=== PATIENT | male | born 1990 | race Caucasian/White ===

== ENCOUNTER 2019-02-02 16:32 | Emergency (ER) | payer OTHER ==
[2019-02-02] MEDS ORDERED: KETOROLAC TROMETHAMINE INJ/PF 30 MG/1 ML SDV IV ONE (17:04)
[2019-02-02] MEDS ORDERED: AMPICILLIN SOD/SULBACTAM 3 GM VIAL IV ONE (17:04)
--- NOTE | 2019-02-02 17:07 | ER Document Report ---
Addendum entered and electronically signed by SERENA ALVARADO NP 02/02/19 17:10: ED Medical Screen (RME) - General Chief Complaint: Dog Bite Stated Complaint: DOG BITE/RIGHT HAND Time Seen by Provider: 02/02/19 16:54 Primary Care Provider: KEE MATA MD [Primary Care Provider] - Follow up as needed Mode of Arrival: Ambulatory TRAVEL OUTSIDE OF THE [place] IN LAST 30 DAYS: No - HPI Notes: 02/02/19 17:10 Right hand is involved, not the left hand. - Related Data Allergies/Adverse Reactions: No Known Allergies Allergy (Verified 02/02/19 16:33) Original Note: ED Medical Screen (RME) - General Chief Complaint: Dog Bite Stated Complaint: DOG BITE/RIGHT HAND Time Seen by Provider: 02/02/19 16:54 Primary Care Provider: KEE MATA MD [Primary Care Provider] - Follow up as needed Mode of Arrival: Ambulatory Information source: Patient TRAVEL OUTSIDE OF THE [place] IN LAST 30 DAYS: No - HPI Patient complains to provider of: DOG BITE Notes: 02/02/19 17:05 Patient here with complaint of dog bite to the left hand. This is his dog. They have had it for about 8 or 9 months. They believe that the dog's immunizations are up-to-date. States that the dog bit him on his left hand last night. There is known area of redness, swelling and pain to the dorsum of the hand. Up-to-date. No numbness, tingling, weakness. No drainage. Exam No distress, nontoxic-appearing. Lungs clear and equal throughout. Heart exam is normal. Multiple puncture wounds to the left hand with some redness, swelling and tenderness to the dorsum of the right hand over the index, middle finger MCP. No drainage. Full range of motion. Mild swelling noted to the entire hand. Plan CBC, CMP, x-ray, saline lock, Unasyn. X-ray of the left hand. An initial examination was made on the patient as part of the triage process, and it was determined a more comprehensive evaluation was necessary. Initial labs were ordered and patient was transferred to another provider in the ED who assumed care and finished evaluation and plan. - Related Data Allergies/Adverse Reactions: No Known Allergies Allergy (Verified 02/02/19 16:33) Past Medical History - Social History Frequency of alcohol use: None Drug Abuse: None Renal/ Medical History: Denies: Hx Peritoneal Dialysis GI Medical History: Reports: Hx Gastroesophageal Reflux Disease Past Surgical History: Reports: Hx Tonsillectomy Physical Exam - Vital signs Vitals: Temp Pulse Resp BP Pulse Ox 98.3 F 91 18 123/76 99 02/02/19 16:39 02/02/19 16:39 02/02/19 16:39 02/02/19 16:39 02/02/19 16:39 Course - Vital Signs Vital signs: Temp Pulse Resp BP Pulse Ox 98.3 F 91 18 123/76 99 02/02/19 16:39 02/02/19 16:39 02/02/19 16:39 02/02/19 16:39 02/02/19 16:39 Doctor's Discharge - Discharge Referrals: KEE MATA MD [Primary Care Provider] - Follow up as needed
[2019-02-02 17:30] LABS: ABSOLUTE BASOPHILS # (AUTO) 0.1 10^3/uL (0.0-0.2); ABSOLUTE EOSINOPHILS # (AUTO) 0.1 10^3/uL (0.0-0.6); ABSOLUTE LYMPHOCYTES (AUTO) 1.5 10^3/uL (0.5-4.7); ABSOLUTE MONOCYTES (AUTO) 0.8 10^3/uL (0.1-1.4); ABSOLUTE NEUT (AUTO) 7.3 10^3/uL (1.7-8.2); BASOPHILS % (AUTO) 0.6 % (0-2); EOSINOPHILS % (AUTO) 0.5 % (0-6); HEMATOCRIT 43.2 % (37.9-51.0); LYMPHOCYTES % (AUTO) 15.3 % (13-45); MEAN CORPUSCULAR HEMOGLOBIN 29.8 pg (27.0-33.4); MEAN CORPUSCULAR HGB CONC 34.8 g/dL (32.0-36.0); MEAN CORPUSCULAR VOLUME 86 fl (80-97); MONOCYTES % (AUTO) 8.2 % (3-13); PLATELET COUNT 234 10^3/uL (150-450); RED BLOOD COUNT 5.05 10^6/uL (4.35-5.55); RED CELL DISTRIBUTION WIDTH 13.3 % (11.5-14.0); SEGMENTED NEUTROPHILS % (AUTO) 75.4 % (42-78); TOTAL CELLS COUNTED % (AUTO) 100 %; WHITE BLOOD COUNT 9.7 10^3/uL (4.0-10.5)
--- NOTE | 2019-02-02 17:35 | RADIOLOGY REPORT (SQ) ---
EXAM DESCRIPTION: HAND RIGHT 3 VIEWS COMPLETED DATE/TIME: 02/02/2019 5:24 pm REASON FOR STUDY: DOG BITE COMPARISON: None. EXAM PARAMETERS: NUMBER OF VIEWS: Three views. TECHNIQUE: AP, lateral and oblique radiographic images acquired of the right hand. LIMITATIONS: None. FINDINGS: MINERALIZATION: Normal. BONES: No acute fracture or dislocation. No worrisome bone lesions. JOINTS: No effusions. SOFT TISSUES: No soft tissue swelling. No foreign body. OTHER: No other significant finding. IMPRESSION: NEGATIVE STUDY OF THE RIGHT HAND. NO RADIOGRAPHIC EVIDENCE OF ACUTE INJURY. TECHNICAL DOCUMENTATION: JOB ID: [id number] [employer]- All Rights Reserved Reading location - IP/workstation name: [email or web address]
[2019-02-02 17:51] LABS: ALANINE AMINOTRANSFERASE 64 U/L (21-72); ALBUMIN 4.4 g/dL (3.5-5.0); ALKALINE PHOSPHATASE 62 U/L (38-126); ANION GAP 9 (5-19); ASPARTATE AMINO TRANSFERASE 33 U/L (17-59); BILIRUBIN,DIRECT 0.3 mg/dL (0.0-0.4); BILIRUBIN,TOTAL 0.8 mg/dL (0.2-1.3); BLOOD UREA NITROGEN 15 mg/dL (7-20); CALCIUM 10.1 mg/dL (8.4-10.2); CARBON DIOXIDE 30 mmol/L (22-30); CHLORIDE 101 mmol/L (98-107); GLUCOSE 105 mg/dL (75-110); POTASSIUM 4.2 mmol/L (3.6-5.0); SODIUM 139.7 mmol/L (137-145); TOTAL PROTEIN 7.3 g/dL (6.3-8.2)
[2019-02-02 19:14] VITALS: BP 104/68
--- NOTE | 2019-02-02 19:46 | ER Document Report ---
ED Animal Bite - General Chief Complaint: Dog Bite Stated Complaint: DOG BITE/RIGHT HAND Time Seen by Provider: 02/02/19 16:54 Primary Care Provider: KEE MATA MD [[facility]ER[facility]] - Follow up as needed Mode of Arrival: Ambulatory Notes: Patient is a 28-year-old male comes emergency room complaining of right hand pain. Patient states that yesterday he was playing with his dog with a bag of food and dog reached up and grabbed his right hand and bit down on it. He has multiple puncture wounds on the dorsum of the right hand as well as the fingers of the right hand. Patient try to clean him up and bandaged himself however in the past 24 hours the hand started to swell somewhat and there is areas to become red and swollen. Patient was afraid he might be getting infected. He states he is here for evaluation of this. TRAVEL OUTSIDE OF THE [place] IN LAST 30 DAYS: No - HPI Location of injury: RUE Onset: Yesterday Quality of pain: Achy Pain Level: 3 Severity: Moderate Context of attack: "Provoked" attack Type of animal: Dog Appearance of animal: Appeared well Animal's immunizations: UTD Animal captured or known: Yes Animal control notified: Yes - Related Data Allergies/Adverse Reactions: No Known Allergies Allergy (Verified 02/02/19 16:33) Past Medical History - General Information source: Patient - Social History Smoking Status: Current Every Day Smoker Cigarette use (# per day): Yes - Pack a day Chew tobacco use (# tins/day): No Smoking Education Provided: No Frequency of alcohol use: None Drug Abuse: None Lives with: Family Family History: Reviewed & Not Pertinent Patient has suicidal ideation: No Patient has homicidal ideation: No Renal/ Medical History: Denies: Hx Peritoneal Dialysis GI Medical History: Reports: Hx Gastroesophageal Reflux Disease Past Surgical History: Reports: Hx Tonsillectomy Review of Systems - Review of Systems Constitutional: No symptoms reported EENT: No symptoms reported Cardiovascular: No symptoms reported Respiratory: No symptoms reported Gastrointestinal: No symptoms reported Genitourinary: No symptoms reported Male Genitourinary: No symptoms reported Musculoskeletal: See HPI Skin: See HPI, Other - Puncture wounds right hand Hematologic/Lymphatic: No symptoms reported Neurological/Psychological: No symptoms reported -: Yes All other systems reviewed and negative Physical Exam - Vital signs Vitals: Temp Pulse Resp BP Pulse Ox 98.3 F 91 18 123/76 99 02/02/19 16:39 02/02/19 16:39 02/02/19 16:39 02/02/19 16:39 02/02/19 16:39 Interpretation: Normal - Notes Notes: PHYSICAL EXAMINATION: GENERAL: Well-appearing, well-nourished and in no acute distress. HEAD: Atraumatic, normocephalic. LUNGS: Breath sounds clear to auscultation bilaterally and equal. No wheezes rales or rhonchi. HEART: Regular rate and rhythm without murmurs Musculoskeletal: Examination of patient's area of concern is his right hand. Examination of the hand shows multiple puncture wounds on the right index finger right middle finger and the dorsum of the right thumb. There is extension of cellulitis from the base of the thumb to the dorsum of the hand down to about wrist level. Puncture wounds appear to be dried and healed at this time. There is one puncture wound on the middle right finger palmar side lateral that is close to the PIP but does not appear to be into the joint space. There is some extension of cellulitis and running to the knuckle/distal metacarpal. Patient has full flexion extension of all fingers there is good cap refill in the nailbeds of all fingernails. Patient has good brush washer strength. There is no sign of any tenosynovitis at this time. NEUROLOGICAL: Normal speech, normal gait. Normal sensory, motor exams PSYCH: Normal mood, normal affect. SKIN: Warm, Dry/see muscular skeletal above for full examination of the hand and skin area. Course - Re-evaluation Re-evalutation: 02/03/19 13:43 Patient is been instructed to take all of his antibiotics. He can open the dressing open to air starting on the . He is to soak the hand in Hibiclens 3 times a day. He has been instructed that he needs to monitor those puncture wounds that are close to the joint spaces which we discussed and no that and in any time in the next few months if it were to reproduce pain pain or discomfort he is to return to ER for recheck. - Vital Signs Vital signs: Temp Pulse Resp BP Pulse Ox 98.2 F 63 18 104/68 100 02/02/19 19:10 02/02/19 19:10 02/02/19 19:10 02/02/19 19:10 02/02/19 19:10 - Laboratory Result Diagrams: 02/02/19 17:14 02/02/19 17:14 Discharge - Discharge Clinical Impression: Dog bite of right hand including fingers with infection Qualifiers: Encounter type: initial encounter Qualified Code(s): S61.451A - Open bite of right hand, initial encounter Condition: Stable Disposition: HOME, SELF-CARE Instructions: Animal Bites ([facility]), Wound Infection ([facility]) Additional Instructions: Home and rest. Medication as prescribed. As we discussed even a month or 2 down the line if any of the fingers of the hands start to have severe pain and discomfort you will need to be re-seen in the emergency room. As stated this is because a couple of the bites are around a joint space and worry about the joint space infection occurring over time. This is worse case scenario and she has are nothing like that whether happened but just to be aware of it. Please take all of the antibiotics as prescribed. If you have increasing swelling or spreading of redness or streaking up or down your arm return to ER for a recheck at once. Should you have an spike a fever or any concerns at all return to ER for recheck. We have given you some antibacterial soap soak your hand and this solution 2-3 times a day for the next couple of days. Prescriptions: Amox Tr/Potassium Clavulanate [Augmentin 875-125 Tablet] 1 tab PO BID 14 Days #28 tablet Forms: Special Work Note, Smoking Cessation Education Referrals: KEE MATA MD [EMERITUS] - Follow up as needed
== END 2019-02-02 20:01 | disposition home or self-care (01) ==
LOC: ER 16:32
DX: S61.451A Open bite of right hand, initial encounter (principal); W50.3XXA Accidental bite by another person, initial encounter; Y92.009 Unspecified place in unspecified non-institutional (private) residence as the place of occurrence of the external cause; F17.210 Nicotine dependence, cigarettes, uncomplicated
CPT/HCPCS: 99283; 36415; 85025; 80053; 73130; J0295; J1885

== ENCOUNTER 2020-07-19 15:31 | Emergency (ER) | payer OTHER ==
[2020-07-19 17:02] VITALS: BP 142/76
--- NOTE | 2020-07-19 17:36 | ER Document Report ---
ED Medical Screen (RME) - General Chief Complaint: Abdominal Pain Stated Complaint: LEFT FOOT DISCOLORED Time Seen by Provider: 07/19/20 17:21 Primary Care Provider: EAN ANDERS MD [Primary Care Provider] - Follow up as needed Mode of Arrival: Ambulatory Information source: Patient Notes: 30-year-old male presents to ED for abdominal pain times a month to nodules that at times are tender but other times are nontender to the abdomen 1 to the left side 1 to the right side. He also overnight last night developed yellowness to the bottom of his foot and a red rash to the top of his foot. He states he was not wearing any socks when this developed. He has not stepped in any dye he has not stepped on anything that would make the left foot yellow and the right foot not. He states he has [facility] and is not been to the doctor in a long time. He states he does have a televisit coming up next week but has not been able to get in before now. He states the health nurse at the school told him he needed to come in and get this checked out. I have greeted and performed a rapid initial assessment of this patient. A comprehensive ED assessment and evaluation of the patient, analysis of test results and completion of medical decision making process will be conducted by an additional ED providers. TRAVEL OUTSIDE OF THE [place] IN LAST 30 DAYS: No - Related Data Allergies/Adverse Reactions: No Known Allergies Allergy (Verified 02/02/19 16:33) Past Medical History Renal/ Medical History: Denies: Hx Peritoneal Dialysis GI Medical History: Reports: Hx Gastroesophageal Reflux Disease Past Surgical History: Reports: Hx Tonsillectomy Physical Exam - Vital signs Vitals: Temp Pulse BP Pulse Ox 98.7 F 64 142/76 H 100 07/19/20 17:00 07/19/20 17:00 07/19/20 17:00 07/19/20 17:00 Course - Vital Signs Vital signs: Temp Pulse Resp BP Pulse Ox 98.7 F 64 142/76 H 100 07/19/20 17:00 07/19/20 17:00 07/19/20 17:00 07/19/20 17:00 Doctor's Discharge - Discharge Referrals: EAN ANDERS MD [Primary Care Provider] - Follow up as needed
[2020-07-19 18:19] LABS: ABSOLUTE BASOPHILS # (AUTO) 0.1 10^3/uL (0.0-0.2); ABSOLUTE EOSINOPHILS # (AUTO) 0.2 10^3/uL (0.0-0.6); ABSOLUTE LYMPHOCYTES (AUTO) 2.5 10^3/uL (0.5-4.7); ABSOLUTE MONOCYTES (AUTO) 0.6 10^3/uL (0.1-1.4); ABSOLUTE NEUT (AUTO) 5.1 10^3/uL (1.7-8.2); BASOPHILS % (AUTO) 0.7 % (0-2); EOSINOPHILS % (AUTO) 2.8 % (0-6); HEMATOCRIT 43.6 % (37.9-51.0); HEMOGLOBIN 15.4 g/dL (13.5-17.0); MEAN CORPUSCULAR HEMOGLOBIN 30.9 pg (27.0-33.4); MEAN CORPUSCULAR HGB CONC 35.2 g/dL (32.0-36.0); MEAN CORPUSCULAR VOLUME 88 fl (80-97); MONOCYTES % (AUTO) 7.3 % (3-13); PLATELET COUNT 258 10^3/uL (150-450); RED BLOOD COUNT 4.97 10^6/uL (4.35-5.55); RED CELL DISTRIBUTION WIDTH 13.3 % (11.5-14.0); SEGMENTED NEUTROPHILS % (AUTO) 60.2 % (42-78); TOTAL CELLS COUNTED % (AUTO) 100 %; WHITE BLOOD COUNT 8.5 10^3/uL (4.0-10.5)
[2020-07-19 18:22] LABS: APPEARANCE,URINE SLIGHTLY-CLOUDY; BILIRUBIN,URINE NEGATIVE (NEGATIVE); COLOR,URINE YELLOW; GLUCOSE, URINE NEGATIVE (NEGATIVE); KETONES,URINE NEGATIVE (NEGATIVE); LEUKOCYTE ESTERASE,URINE NEGATIVE (NEGATIVE); NITRITE,URINE NEGATIVE (NEGATIVE); PROTEIN,URINE NEGATIVE (NEGATIVE); URINE SPECIFIC GRAVITY 1.021; UROBILINOGEN,URINE NEGATIVE mg/dL (<2.0)
[2020-07-19 18:36] LABS: URINE AMPHETAMINES SCREEN NEGATIVE; URINE BARBITURATES SCREEN NEGATIVE; URINE BENZODIAZEPINES SCREEN NEGATIVE; URINE COCAINE SCREEN NEGATIVE; URINE MARIJUANA (THC) SCREEN NEGATIVE; URINE METHADONE SCREEN NEGATIVE; URINE PHENCYCLIDINE SCREEN NEGATIVE
[2020-07-19 18:38] LABS: ALBUMIN 4.7 g/dL (3.5-5.0); ALKALINE PHOSPHATASE 64 U/L (38-126); ANION GAP 8 (5-19); ASPARTATE AMINO TRANSFERASE 40 U/L (17-59); BILIRUBIN,DIRECT 0.1 mg/dL (0.0-0.4); BILIRUBIN,TOTAL 0.3 mg/dL (0.2-1.3); BLOOD UREA NITROGEN 21 mg/dL (7-20); CALCIUM 10.1 mg/dL (8.4-10.2); CARBON DIOXIDE 30 mmol/L (22-30); CHLORIDE 99 mmol/L (98-107); GLUCOSE 98 mg/dL (75-110); POTASSIUM 4.6 mmol/L (3.6-5.0); TOTAL PROTEIN 7.3 g/dL (6.3-8.2)
== END 2020-07-19 18:54 | disposition left against medical advice (07) ==
LOC: ER 15:31
DX: R10.9 Unspecified abdominal pain (principal); R21 Rash and other nonspecific skin eruption
CPT/HCPCS: 36415; 80053; 80307; 81001; 83690; 85025; 99281